=== PATIENT | male | born 1960 | race Caucasian/White ===

== ENCOUNTER 2018-10-12 07:38 | Day surgery (SDC) | payer OTHER ==
[~2018-10-12] VITALS: Ht 175.3 cm; Wt 77.3 kg
[2018-10-12 08:17] VITALS: BP 148/99
[2018-10-12] MEDS ORDERED: BUPIVACAINE/PF 0.25% ONE (09:31)
[2018-10-12] MEDS ORDERED: EPINEPHRINE 1 MG/ML, 1ML ONE (09:31)
[2018-10-12] MEDS ORDERED: SUGAMMADEX 200 MG/2 ML IVPush ONE (09:35)
[2018-10-12] MEDS ORDERED: FENTANYL PF 100 MCG/2ML ONE ×2 (09:36→10:22)
[2018-10-12] MEDS ORDERED: MIDAZOLAM 1 MG/ML, 2ML ONE (09:36)
[2018-10-12] MEDS ORDERED: DEXAMETHASONE 4 MG/ML, 1ML ONE (09:50)
[2018-10-12] MEDS ORDERED: CEFAZOLIN 1,000 MG ONE (09:50)
[2018-10-12] MEDS ORDERED: KETOROLAC 30 MG/1 ML ONE (09:50)
[2018-10-12] MEDS ORDERED: LIDOCAINE 2% 100MG/5ML SYRINGE ONE (09:50)
[2018-10-12] MEDS ORDERED: PROPOFOL 10 MG/ML, 20ML ONE (09:50)
[2018-10-12] MEDS ORDERED: ONDANSETRON 2MG/ML, 2ML ONE (09:50)
[2018-10-12] MEDS ORDERED: ROCURONIUM 10MG/ML,5ML ONE (09:50)
[2018-10-12] MEDS ORDERED: METOCLOPRAMIDE 5 MG/ML, 2ML IV PRN (10:00)
[2018-10-12] MEDS ORDERED: ACETAMINOPHEN 325 MG TABLET PO PRN (10:00)
[2018-10-12] MEDS ORDERED: LORazepam 2 MG/ML, 1ML IVPush PRN (10:00)
[2018-10-12] MEDS ORDERED: OXYcodone 5 MG/5 ML ORAL.SOL UDC PO PRN (10:00)
[2018-10-12] MEDS ORDERED: DIPHENHYDRAMINE 50 MG/ML, 1ML IVPush PRN (10:00)
[2018-10-12] MEDS ORDERED: FENTANYL PF 100 MCG/2ML IV PRN (10:00)
[2018-10-12] MEDS ORDERED: PLEASE ENTER ALLERGIES MC SCH (10:00)
[2018-10-12] MEDS ORDERED: HYDROmorphone 2 MG/ML, 1ML IVPush PRN (10:00)
[2018-10-12] MEDS ORDERED: MEPERIDINE/PF 25MG/0.5ML IVPush PRN (10:00)
[2018-10-12] MEDS ORDERED: BUPIVACAINE/PF-EPI 0.25% 1:200K INFIL ONE (10:14)
[2018-10-12 11:25] VITALS: BP 129/89
[2018-10-12] MEDS ORDERED: OXYC5TAB2 PO (12:19)
[2018-10-12 12:35] VITALS: BP 130/88
== END 2018-10-12 13:00 | disposition home or self-care (01) ==
LOC: OR 07:38 → 4NOR 08:02 → OR 13:00
PROVIDERS: ATTEND Orthopaedic Surgery
DX: S46.212A Strain of muscle, fascia and tendon of other parts of biceps, left arm, initial encounter (principal); Z87.891 Personal history of nicotine dependence; X58.XXXA Exposure to other specified factors, initial encounter; Y93.89 Activity, other specified; Y92.89 Other specified places as the place of occurrence of the external cause; Y99.8 Other external cause status
CPT/HCPCS: 24342; J0171; J0690; J1100; J1885; J2250; J2405; J2704; J3010; J3490; G0378